=== PATIENT | female | born 1985 | race American Indian/Alaskan Native ===

== ENCOUNTER 2016-11-24 13:50 | Emergency (ER) | payer SELFPAY ==
[2016-11-24 16:03] LABS: Hematocrit 43.6 % (30.3-42.9); Hemoglobin 14.3 gm/dl (10.1-14.3); Mean Corpuscular HGB Conc 33 % (30-34); Mean Corpuscular Hemoglobin 31 pg (28-32); Mean Corpuscular Volume 94 fl (79-97); Platelet Count 234 K/mm3 (140-440); Red Blood Count 4.66 M/mm3 (3.65-5.03); Red Cell Distribution Width 14.4 % (13.2-15.2); White Blood Count 6.2 K/mm3 (4.5-11.0)
[2016-11-24 16:23] LABS: Anion Gap 17 mmol/L; Blood Urea Nitrogen 7 mg/dL (7-17); Calcium 9.2 mg/dL (8.4-10.2); Carbon Dioxide 27 mmol/L (22-30); Chloride 102.1 mmol/L (98-107); Glucose 86 mg/dL (65-100); Potassium 4.5 mmol/L (3.6-5.0); Sodium 142 mmol/L (137-145)
[2016-11-24 18:49] LABS: Bilirubin,Urine NEG (Negative); Blood,Urine NEG (Negative); Ketones,Urine 20 mg/dL (Negative); Leukocyte Esterase,Urine MOD (Negative); Mucus,Urine 2+ /HPF; Nitrite,Urine NEG (Negative); Protein,Urine <15 mg/dL mg/dL (Negative); Urobilinogen,Urine < 2.0 mg/dL (<2.0)
[2016-11-24] MEDS ORDERED: ANTIVERT PO ONE (22:03)
--- NOTE | 2016-11-24 22:27 | Emergency Department Report ---
HPI - General Chief Complaint: Dizziness Time Seen by Provider: 11/24/16 21:00 - HPI HPI: Patient presents to ED with right ear pain, dizziness, or dizziness causing her difficulty with ambulation. Her symptoms started today. She hasn't tried any medicines at home. Hasn't seen a PCP about her symptoms. ED Past Medical Hx - Past Medical History Hx Headaches / Migraines: Yes - Surgical History Additional Surgical History: - Social History Smoking Status: Never Smoker Substance Use Type: Alcohol - Medications Home Medications: Home Medications Medication Instructions Recorded Confirmed Last Taken Type Amoxicillin [Amoxicillin TAB] 875 mg PO BID #20 tablet 11/24/16 Unknown Rx Meclizine [Antivert] 25 mg PO TID PRN #30 tablet 11/24/16 Unknown Rx ED Review of Systems ROS: Stated complaint: POSSIBLE VERTIGO Other details as noted in HPI Comment: All other systems reviewed and negative ENT: ear pain Neurological: weakness Physical Exam - Physical Exam Vital Signs: Vital Signs 11/24/16 14:38 Temperature 98.3 F Pulse Rate 77 Respiratory 20 Rate Blood Pressure 110/76 O2 Sat by Pulse 100 Oximetry Physical Exam: Gen. alert and oriented 3 in no distress Head atraumatic normocephalic ear: Right ear with bulging TM Eyes PERR LA EOMI Chest regular rate and rhythm normal S1-S2 lungs clear bilaterally Abdomen soft nondistended Back no point tenderness paravertebral tenderness Neuro no focal deficit. Psych normal mood. ED Course Vital Signs 11/24/16 14:38 Temperature 98.3 F Pulse Rate 77 Respiratory 20 Rate Blood Pressure 110/76 O2 Sat by Pulse 100 Oximetry ED Medical Decision Making - Lab Data Result diagrams: 11/24/16 15:35 11/24/16 15:35 Critical care attestation.: If time is entered above; I have spent that time in minutes in the direct care of this critically ill patient, excluding procedure time. ED Disposition Clinical Impression: Right otitis media, Dizziness Disposition: [id number] TO HOME OR SELFCARE Is pt being admited?: No Does the pt Need Aspirin: No Condition: Stable Instructions: Dizziness (ED) Prescriptions: Amoxicillin [Amoxicillin TAB] 875 mg PO BID #20 tablet Meclizine [Antivert] 25 mg PO TID PRN #30 tablet PRN Reason: Vertigo Referrals: PRIMARY CARE, [Primary Care Provider] - 3-5 Days Time of Disposition: 22:28
[2016-11-24 22:46] VITALS: BP 114/61
== END 2016-11-24 22:40 | disposition home or self-care (01) ==
LOC: ED 13:50
DX: H66.91 Otitis media, unspecified, right ear (principal); R42 Dizziness and giddiness; G43.909 Migraine, unspecified, not intractable, without status migrainosus
CPT/HCPCS: 36415; 80048; 81001; 81025; 85027; 99283